=== PATIENT | male | born 1985 | race African-American/Black ===

== ENCOUNTER 2024-11-04 13:09 | Emergency (ER) | payer SELFPAY ==
[~2024-11-04] VITALS: Ht 170.2 cm; Wt 79.3 kg
[2024-11-04 14:03] VITALS: O2SAT 97
[2024-11-04] MEDS ORDERED: TETANUS, DIPHTHERIA, PERTUSSIS VAC/PF 0.5ML (>10YR OLD) IM ONE (15:15)
[2024-11-04] MEDS ORDERED: HYDROCODONE/ACETAMINOPHEN 5/325MG TABLET PO ONE (15:15)
[2024-11-04] MEDS ORDERED: BACITRACIN ZINC OINT UDPKT TOP ONE (15:15)
[2024-11-04] MEDS ORDERED: CEPH500T MT (17:44)
[2024-11-04] MEDS ORDERED: IBUP-2029 MT (17:44)
[2024-11-04] MEDS ORDERED: BO1 TP (17:44)
[2024-11-04] MEDS: BACITRACIN ZINC OINT UDPKT TOP NR (18:11)
[2024-11-04] MEDS: HYDROCODONE/ACETAMINOPHEN 5/325MG TABLET PO NR (18:11)
[2024-11-04] MEDS: LIDOCAINE HCL/PF 1% 10 MG/ML 5ML VIAL INFIL ONE ×2 (18:11)
[2024-11-04] MEDS: TETANUS, DIPHTHERIA, PERTUSSIS VAC/PF 0.5ML (>10YR OLD) IM ONE (18:12)
[2024-11-04 18:13] VITALS: BP 118/75; PULSE 72; RESP 19; TEMP 36.78072; O2SAT 97
== END 2024-11-04 18:15 | disposition home or self-care (01) ==
LOC: ER 13:09
DX: S61.212A Laceration without foreign body of right middle finger without damage to nail, initial encounter (principal); I10 Essential (primary) hypertension; W26.9XXA Contact with unspecified sharp object(s), initial encounter; W26.8XXA Contact with other sharp object(s), not elsewhere classified, initial encounter; Y93.89 Activity, other specified; Y92.89 Other specified places as the place of occurrence of the external cause; Y99.8 Other external cause status
CPT/HCPCS: 73140; 12001; 99283; J3490; Z7610; 90715; J2003

== ENCOUNTER 2024-11-18 17:25 | Emergency (ER) | payer SELFPAY ==
[~2024-11-18] VITALS: Ht 172.7 cm; Wt 79.0 kg
[~2024-11-18 17:25] MED LIST: BO1 TP; CEPH500T MT; IBUP-2029 MT
[2024-11-18 17:36] VITALS: BP 133/87; PULSE 66; RESP 16; TEMP 98.6; O2SAT 100
[2024-11-18] MEDS ORDERED: BACITRACIN ZINC OINT UDPKT TOP ONE (21:15)
[2024-11-18] MEDS ORDERED: LIDOCAINE HCL/PF 1% 10 MG/ML 5ML VIAL INFIL ONE (21:15)
== END 2024-11-18 21:13 | disposition home or self-care (01) ==
LOC: ER 17:25
DX: S61.219D Laceration without foreign body of unspecified finger without damage to nail, subsequent encounter (principal); I10 Essential (primary) hypertension; X58.XXXD Exposure to other specified factors, subsequent encounter
CPT/HCPCS: 99281